=== PATIENT | female | born 1950 | race Caucasian/White ===

== ENCOUNTER 2017-11-15 23:03 | Emergency (ER) | payer MEDICAID ==
[2017-11-16 00:01] VITALS: BMI 31.1
[2017-11-16 00:07] VITALS: BP 47/29; PULSE 38; O2SAT 100
--- NOTE | 2017-11-16 00:12 | ED PDOC ---
Arrival/HPI - General Time Seen by Provider: 11/15/17 23:22 Historian: Family - History of Present Illness Narrative History of Present Illness (Text): 11/16/17 00:07 Chad Tomas is a 67 year old female, whose past medical history includes hernia surgery 1 week ago, who presents to the emergency department via EMS s/p cardiac arrest in the field. Family states the patient was complaining of pain. Family went to get the patient, when she collapsed. EMS performed CPR, gave 3 epis and transported to [facility]. Patient remained asystolic. ACLS protocol was performed. Time of 23:40. Time/Duration: Prior to Arrival Symptom Onset: Gradual Symptom Course: Unchanged Activities at Onset: Light Context: Home Past Medical History - Provider Review Nursing Documentation Reviewed: Yes - Infectious Disease Hx of Infectious Diseases: None - Tetanus Immunization Tetanus Immunization: Unknown - Cardiac Hx Hypertension: Yes - Pulmonary Hx Respiratory Disorders: No - Neurological Hx Neurological Disorder: No - HEENT Hx Cataracts: Yes (right eye sx done, left eye sched for next week) - Renal Hx Renal Disorder: No - Endocrine/Metabolic Hx Diabetes Mellitus Type 1: Yes - Hematological/Oncological Hx Blood Transfusions: No Hx Blood Transfusion Reaction: No - Integumentary Hx Dermatological Disorder: No - Musculoskeletal/Rheumatological Hx Musculoskeletal Disorders: No - Gastrointestinal Hx Gall Bladder Disease: Yes Other/Comment: bloating, gas, constipation - Genitourinary/Gynecological Hx Genitourinary Disorders: No - Psychiatric Hx Emotional Abuse: No Hx Physical Abuse: No Hx Substance Use: No - Surgical History Other/Comment: bilateral foot sx ulcers repaired 4 or 5 months ago. Laparotomy with exxcision of some organ. - Anesthesia Hx Anesthesia Reactions: No Hx Malignant Hyperthermia: No - Suicidal Assessment Feels Threatened In Home Enviroment: No Family/Social History - Physician Review Nursing Documentation Reviewed: Yes Family/Social History: Unknown Family HX Smoking Status: Never Smoked Hx Alcohol Use: No Hx Substance Use: No Hx Substance Use Treatment: No Allergies/Home Meds Allergies/Adverse Reactions: Allergies No Known Allergies Allergy (Verified 11/15/17 23:59) Home Medications: Home Meds Medication Instructions Recorded Confirmed Humulin 70/30 50 units SC DAILY 11/09/12 03/07/15 Casanthranol/Docusate Sodium 3 cap PO DAILY 03/07/15 03/07/15 [Doc-Q-Lax 30 mg-100 mg] Insulin NPH Hum/Reg Insulin Hm 30 unit SC HS 03/07/15 03/07/15 [Humulin 70-30 Pen] Lactulose [Generlac] 15 ml PO DAILY 03/07/15 03/07/15 Multivitamin [Daily Aletha] 1 tab PO DAILY 03/07/15 03/07/15 Review of Systems - Review of Systems Systems not reviewed;Unavailable: Other (Cardiac Arrest) Physical Exam - Physical Exam Physical Exam Limitations: Other (Cardiac Arrest) Vital Signs Reviewed: Yes Vital Signs Pulse BP Pulse Ox 11/15/17 23:03 38 L 47/29 L 100 Pulse: Pulseless Respiratory Rate: Apneic Pain Distress: None Mental Status: Positive for: Comatose - Systems Exam Head: Present: Atraumatic Pupils: Present: Non-Reactive Conjunctiva: Present: Normal Neck: Present: Normal Range of Motion Respiratory/Chest: Present: Good Air Exchange (with ambu) Cardiovascular: Present: Other (no pulse) Abdomen: Present: Other (recent abdominal sx dressing dry and intact) Back: Present: Normal Inspection Upper Extremity: Present: Normal Inspection Lower Extremity: Present: Normal Inspection Medical Decision Making ED Course and Treatment: 11/16/17 00:14 Impression: 67 year old female presents to the emergency department via EMS s/p cardiac arrest in the field. Plan: -- Reasses Progress Notes: Patient arrived in emergency department Asystolic. ACLS protocol was performed. Time of 23:40. - Scribe Statement The provider has reviewed the documentation as recorded by the Scribe Documented by Aaliyah Lake acting as a scribe for Neftali Marks MD. Disposition/Present on Arrival - Present on Arrival Any Indicators Present on Arrival: No History of DVT/PE: No History of Uncontrolled Diabetes: No Urinary Catheter: No History Surgical Site Infection Following: None - Disposition Have Diagnosis and Disposition been Completed?: Yes Diagnosis: Cardiac arrest Disposition: WITH WITHOUT AUTOPSY Disposition Time: 23:40 Condition: Forms: [employer] ([place])
== END 2017-11-16 02:50 ==
LOC: ED 23:03
DX: I46.9 Cardiac arrest, cause unspecified (principal); I10 Essential (primary) hypertension